=== PATIENT | female | born 1980 | race Caucasian/White ===

== ENCOUNTER 2017-07-09 11:59 | Observation (INO) | payer OTHER ==
[2017-07-09] MEDS ORDERED: ALBUTEROL SO4 2.5/IPRATROPIUM 0.5 INH SOL 3 ML VIAL.NEB. NEB ONE ×3 (13:05→18:20)
[2017-07-09] MEDS ORDERED: methylPREDNISolone NA SUCC 125 MG/2 ML VIAL IVPB ONE (13:05)
--- NOTE | 2017-07-09 13:16 | PDOC ---
History of Present Illness - General Chief Complaint: Shortness of Breath Stated Complaint: SOB Time Seen by Provider: 07/09/17 12:21 History Source: Patient Exam Limitations: No Limitations - History of Present Illness Initial Comments: This is a 37 YOF with h/o asthma (never intubated or admitted, uses albuterol MDI prn) and current OCP use (x3 months) who presents with SOB since walking up steps this morning at 9 am. She states that the SOB started with exertion but has persisted since that time, and she additionally has 7/10 nonradiating substernal chest pain which began around the same time as the SOB. The SOB feels the same as her asthma exacerbations but the chest pain is new. She additionally has had recent cough, but she denies any fever, chills, nausea, vomiting, diarrhea, constipation, leg pain or swelling. She has not taken any recent long car rides or plane rides, has not been ill or immobilized recently, has not had recent injuries or surgeries, and has no known h/o DVT/PE. Past History - Past Medical History Allergies/Adverse Reactions: Allergies Allergy/AdvReac Type Severity Reaction Status Date / Time No Known Drug Allergies Allergy Verified 07/09/17 12:03 Home Medications: Ambulatory Orders Norethindrone-E.estradiol-Iron [Tilia Fe 28 Tablet] 1 each PO DAILY 07/09/17 Asthma: Yes COPD: No - Surgical History Cholecystectomy: Yes - Suicide/Smoking/Psychosocial Hx Smoking Status: No Smoking History: Never smoked Have you smoked in the past 12 months: No Number of Cigarettes Smoked Daily: 0 Information on smoking cessation initiated: No Hx Alcohol Use: No Drug/Substance Use Hx: No Substance Use Type: None Hx Substance Use Treatment: No Review of Systems - Review of Systems Constitutional: No: Chills, Fever, Unexplained wgt Loss HEENTM: No: Nose Congestion, Throat Pain Respiratory: No: Cough, Shortness of Breath Cardiac (ROS): No: Chest Pain, Palpitations ABD/GI: No: Constipated, Diarrhea, Nausea, Vomiting : No: Burning, Dysuria Musculoskeletal: No: Back Pain, Neck Pain Integumentary: No: Bruising, Rash Neurological: No: Headache, Numbness, Tingling, Weakness, Dizziness Endocrine: No: Unexplained Weight Gain, Unexplained Weight Loss *Physical Exam - Vital Signs Last Vital Signs Temp Pulse Resp BP Pulse Ox 98 F 72 20 132/96 100 07/09/17 12:04 07/09/17 12:04 07/09/17 12:04 07/09/17 12:04 07/09/17 12:04 ED Treatment Course - LABORATORY CBC & Chemistry Diagram: 07/09/17 13:31 07/09/17 13:31 - RADIOLOGY Radiology Studies Ordered: Category Date Time Status CHEST CT WITH CONTRAST [CT] Stat CT Scan 07/09/17 13:06 Ordered CHEST PA & LAT [RAD] Stat Radiology 07/09/17 13:06 Ordered *DC/Admit/Observation/Transfer Diagnosis at time of Disposition: Shortness of breath, EKG abnormalities, Pulmonary hypertension Chest pain Qualifiers: Chest pain type: unspecified Qualified Code(s): R07.9 - Chest pain, unspecified - Discharge Dispostion Condition at time of disposition: Guarded Admit: Yes - Referrals - Patient Instructions - Post Discharge Activity
--- NOTE | 2017-07-09 13:34 | PDOC ---
Attending Attestation - Resident Resident Name: Jennifer Mayers - ED Attending Attestation I have performed the following: I have examined & evaluated the patient, The case was reviewed & discussed with the resident, I agree w/resident's findings & plan, Exceptions are as noted - HPI HPI: 07/09/17 13:43 The patient is a 37 year old female, with a significant PMH of asthma, who presents to the emergency department with shortness of breath while walking up a flight of stairs at 9AM this morning and associated substernal chest discomfort. The patient describes the substernal chest discomfort as a 7/10, non -radiating. The patient states the SOB feels similar to previous asthma exacerbations but does not report chest pain in the past. The patient notes she went to see her PCP today, had an EKG done there, and was told to come to the ER for further evaluation. The patient denies any recent long car rides, leg pain or swelling, chest pain, shortness of breath, headache and dizziness. Denies fever, chills, nausea, vomit, diarrhea and constipation. Denies dysuria, frequency, urgency and hematuria. Allergies: NKA Past surgical history: Cholecystectomy. Ovarian cyst removal. Social history: No reported alcohol, cigarette or drug use. - Physicial Exam PE: 07/09/17 13:43 GENERAL: Awake, alert, and fully oriented, in no acute distress HEAD: No signs of trauma EYES: PERRLA, EOMI, sclera anicteric, conjunctiva clear ENT: Auricles normal inspection, hearing grossly normal, nares patent, oropharynx clear without exudates. Moist mucosa NECK: Normal ROM, supple, no lymphadenopathy, JVD, or masses LUNGS: Breath sounds equal, clear to auscultation bilaterally. No wheezes, and no crackles HEART: Regular rate and rhythm, normal S1 and S2, no murmurs, rubs or gallops ABDOMEN: Soft, nontender, normoactive bowel sounds. No guarding, no rebound. No masses EXTREMITIES: Normal range of motion, no edema. No clubbing or cyanosis. No cords, erythema, or tenderness NEUROLOGICAL: Normal speech, cranial nerves intact, negative pronator drift, 5/ 5 strength in all 4 extremities, normal sensation to light touch in all 4 extremities, normal cerebellar exam, normal gait, normal reflexes and tone SKIN: Warm, Dry, normal turgor, no rashes or lesions noted. - Medical Decision Making 07/09/17 13:43 37-year-old female with a history of asthma on oral contraceptive pills presents with chest pressure, shortness of breath on exertion and abnormal EKG. Vitals are unremarkable. Exam is completely normal with no wheezing. Differential includes but is not limited to pulmonary embolism versus ACS versus muscular pain or asthma. 07/09/17 19:07 Labs unremarkable including negative troponin. CTA negative for PE but concerning for possible pulmonary hypertension. Given persistent chest pain and abnormal EKG as well as possible pulmonary hypertension, the patient has been admitted for further management. Signout has been given to resident Dr. Balbuena who accepts the patient for admission under Dr. Donohue. Case discussed in detail with admitting physician including history, physical exam and ancillary studies. Admitting physician has assumed care for the patient, will follow all pending diagnostics and will complete the evaluation and treatment.
[2017-07-09 13:40] LABS: BASO % 0.2 % (0-2.0); EOS % 0.5 % (0-4.5); HEMATOCRIT 40.1 % (32.4-45.2); HEMOGLOBIN 12.9 GM/dL (10.7-15.3); MCH 28.9 pg (25.7-33.7); MCHC 32.2 g/dl (32.0-36.0); MEAN CELL VOLUME 89.7 fl (80-96); MEAN PLT VOLUME 10.2 fl (7.5-11.1); MONO % 5.8 % (3.8-10.2); NEUT % 66.5 % (42.8-82.8); PLATELET COUNT 200 K/MM3 (134-434); RBC 4.47 M/mm3 (3.60-5.2); RDW 14.1 % (11.6-15.6); WHITE BLOOD COUNT 9.6 K/mm3 (4.0-10.0)
[2017-07-09 13:42] LABS: VENOUS PC02 46.1 mmHg (38-52); VENOUS PH 7.34 (7.32-7.42); VENOUS PO2 23.2 mmHg (28-48)
[2017-07-09 13:58] LABS: INR 0.99 (0.82-1.09); PROTHROMBIN TIME (PATIENT) 11.2 SEC (9.98-11.88)
[2017-07-09] MEDS ORDERED: methylPREDNISolone NA SUCC 125 MG/2 ML VIAL ONE (14:02)
[2017-07-09 14:49] LABS: ALBUMIN 3.5 g/dl (3.4-5.0); ANION GAP 10 (8-16); BLOOD UREA NITROGEN 12 mg/dL (7-18); CALCIUM 8.3 mg/dL (8.5-10.1); CHLORIDE 105 mmol/L (98-107); CO2 24 mmol/L (21-32); CREATININE 0.7 mg/dL (0.55-1.02); GLUCOSE,RANDOM 75 mg/dL (74-106); POTASSIUM 3.9 mmol/L (3.5-5.1); SGOT/AST 13 U/L (15-37); SGPT/ALT 21 U/L (12-78); SODIUM 139 mmol/L (136-145)
[2017-07-09 14:53] LABS: ALK PHOS 78 U/L (45-117); BILIRUBIN,TOTAL 0.5 mg/dL (0.2-1.0); TOT PROT 7.2 g/dl (6.4-8.2)
[2017-07-09] MEDS ORDERED: IBUPROFEN 400 MG TABLET (FP) PO ONE ×2 (18:06→19:04)
[2017-07-09] MEDS ORDERED: ACETAMINOPHEN 500 MG TABLET (FP) PO ONE (18:20)
--- NOTE | 2017-07-09 19:52 | HP ---
CHIEF COMPLAINT: SOB on exertion , new onset HISTORY OF PRESENT ILLNESS: The patient is a 37 year old female, with a significant PMH of asthma, who presents to the emergency department with shortness of breath while walking up a flight of stairs and associated substernal chest discomfort. The patient describes the substernal chest discomfort as a 7/10, non-radiating. The patient states the SOB feels similar to previous asthma exacerbations but does not report chest pain in the past. The patient notes she went to see her PCP today, had an EKG done there, and was told to come to the ER for further evaluation. The patient denies any recent long car rides, leg pain or swelling, chest pain, shortness of breath, headache and dizziness. Denies fever, chills, nausea, vomit, diarrhea and constipation. Denies dysuria, frequency, urgency and hematuria. pt has a family history of sudden , her mother at age 35 of heart attack per daughter. ER course was notable for: (1)CBC, CMP (2)EKG (3)BNP (4)CT chest Recent Travel:denies PAST MEDICAL HISTORY: Asthma PAST SURGICAL HISTORY: Cholecystectomy. Ovarian cyst removal. Social History: Smoking:denies Alcohol:denies Drugs: denies Family History: Allergies No Known Drug Allergies Allergy (Verified 07/09/17 12:03) HOME MEDICATIONS: Home Medications Medication Instructions Recorded Norethindrone-E.estradiol-Iron 1 each PO DAILY 07/09/17 [Tilia Fe 28 Tablet] REVIEW OF SYSTEMS CONSTITUTIONAL: + weight change gain 5 pounds HEENT: Absent: rhinorrhea, nasal congestion, throat pain, throat swelling, difficulty swallowing, mouth swelling, ear pain, eye pain, visual changes CARDIOVASCULAR: Absent: chest pain, syncope, palpitations, irregular heart rate, lightheadedness , peripheral edema RESPIRATORY: shortness of breath, dyspnea with exertion, denies orthopnea, wheezing, stridor, hemoptysis GASTROINTESTINAL: Absent: abdominal pain, abdominal distension, nausea, vomiting, diarrhea, constipation, melena, hematochezia GENITOURINARY: Absent: dysuria, frequency, urgency, hesitancy, hematuria, flank pain, genital pain MUSCULOSKELETAL: Absent: myalgia, arthralgia, joint swelling, back pain, neck pain SKIN: Absent: rash, itching, pallor HEMATOLOGIC/IMMUNOLOGIC: Absent: easy bleeding, easy bruising, lymphadenopathy, frequent infections ENDOCRINE: Absent: unexplained weight gain, unexplained weight loss, heat intolerance, cold intolerance NEUROLOGIC: Absent: headache, focal weakness or paresthesias, dizziness, unsteady gait, seizure, mental status changes, bladder or bowel incontinence PSYCHIATRIC: + anxiety, denies depression, suicidal or homicidal ideation, hallucinations. PHYSICAL EXAMINATION Vital Signs - 24 hr 07/09/17 12:04 Temperature 98 F Pulse Rate 72 Respiratory 20 Rate Blood Pressure 132/96 O2 Sat by Pulse 100 Oximetry (%) GENERAL: Awake, alert, and fully oriented, in no acute distress. HEAD: NC/AT EYES: AMALIA , EOMI, sclera anicteric, conjunctiva clear. E Moist mucous membranes. NECK: supple without lymphadenopathy, JVD, LUNGS:CTA B/L . No wheezes, and no crackles. No accessory muscle use. HEART: NSR, normal S1 and S2 without murmur, rub or gallop. ABDOMEN: soft, ND, NT, normoactive bowel sounds, no guarding, no rebound. MUSCULOSKELETAL:FROM all joints. No bony deformities or tenderness. No CVA tenderness. UPPER EXTREMITIES: 2+ pulses, warm, well-perfused. No cyanosis. No clubbing. No peripheral edema. LOWER EXTREMITIES: 2+ pulses, warm, well-perfused. No calf tenderness. No peripheral edema. NEUROLOGICAL: Cranial nerves II-XII intact. Normal speech. gait not observed. PSYCHIATRIC: Cooperative. Good eye contact. Appropriate mood and affect. SKIN: Warm, dry, Laboratory Results - last 24 hr 07/09/17 07/09/17 07/09/17 13:31 13:31 13:31 WBC 9.6 RBC 4.47 Hgb 12.9 Hct 40.1 MCV 89.7 MCH 28.9 MCHC 32.2 RDW 14.1 Plt Count 200 MPV 10.2 D Neutrophils % 66.5 Lymphocytes % 27.0 Monocytes % 5.8 Eosinophils % 0.5 Basophils % 0.2 PT with INR 11.20 INR 0.99 VBG pH POC VBG pCO2 POC VBG pO2 Mixed VBG HCO3 Sodium 139 Potassium 3.9 Chloride 105 Carbon Dioxide 24 Anion Gap 10 BUN 12 Creatinine 0.7 Creat Clearance w eGFR > 60 Random Glucose 75 Calcium 8.3 L Magnesium 2.0 Total Bilirubin 0.5 D AST 13 L ALT 21 Alkaline Phosphatase 78 Creatine Kinase 111 Troponin I < 0.02 B-Natriuretic Peptide Total Protein 7.2 Albumin 3.5 Serum , Qual 07/09/17 0218 18 13:31 13:31 13:31 WBC RBC Hgb Hct MCV MCH MCHC RDW Plt Count MPV Neutrophils % Lymphocytes % Monocytes % Eosinophils % Basophils % PT with INR INR VBG pH 7.34 POC VBG pCO2 46.1 POC VBG pO2 23.2 L Mixed VBG HCO3 24.3 Sodium Potassium Chloride Carbon Dioxide Anion Gap BUN Creatinine Creat Clearance w eGFR Random Glucose Calcium Magnesium Total Bilirubin AST ALT Alkaline Phosphatase Creatine Kinase Troponin I B-Natriuretic Peptide 378.13 H Total Protein Albumin Serum , Qual Negative 07/09/17 18:00 WBC RBC Hgb Hct MCV MCH MCHC RDW Plt Count MPV Neutrophils % Lymphocytes % Monocytes % Eosinophils % Basophils % PT with INR INR VBG pH POC VBG pCO2 POC VBG pO2 Mixed VBG HCO3 Sodium Potassium Chloride Carbon Dioxide Anion Gap BUN Creatinine Creat Clearance w eGFR Random Glucose Calcium Magnesium Total Bilirubin AST ALT Alkaline Phosphatase Creatine Kinase 108 Troponin I < 0.02 B-Natriuretic Peptide Total Protein Albumin Serum , Qual CBC, BMP 07/09/17 13:31 07/09/17 13:31 CTA negative for PE CXR clear lungs ASSESSMENT/PLAN: The patient is a 37 year old female, with a significant PMH of asthma, who presents to the emergency department with shortness of breath while walking up a flight of stairs and associated substernal chest discomfort. was found to have abnormal T waves on EKG was admitted for further evaluation. # Atypical chest pain R/O PE vs Asthma vs Pulmonary HTN vs musculoskeletal * CTA negative for PE * CXR clear lung * Trop negative * EKG NSR with ST, T wave abnormalities * BNP 378 * ECHO * cardiology consult * stress test as out patient. # Asthma * duoneb * o2 to keep O2 > 90 * # Pulmonary HTN , * noted on CT chest * Follow up as out patient * # FEN * F: no fluids * E: WNL * N: regular diet # Proph * DVT: scds both legs , hep 5000 SQ TID * GI: no needed * # Dispo: * Admit to tele Visit type - Emergency Visit Emergency Visit: Yes ED Registration Date: 07/10/17 Care time: The patient presented to the Emergency Department on the above date and was hospitalized for further evaluation of their emergent condition. - New Patient This patient is new to me today: Yes Date on this admission: 07/11/17 - Critical Care Critical Care patient: No
[2017-07-09] MEDS ORDERED: ACETAMINOPHEN 325 MG TABLET (FP) PO PRN (22:31)
[2017-07-09 23:45] VITALS: BMI 29.7
--- NOTE | 2017-07-09 23:59 | PN ---
Teaching Attending Note Name of Resident: Michoacano Michel ATTENDING PHYSICIAN STATEMENT I saw and evaluated the patient. I reviewed the resident's note and discussed the case with the resident. I agree with the resident's findings and plan as documented. SUBJECTIVE: patient has been having symptoms of SOB and RICHARD for a while that are worse with exertion, but today they became worse OBJECTIVE: ASSESSMENT AND PLAN: patient presented with worsening SOB, PE was ruled out. patient has a significant PMH of mother at the age of 35 from a cardiovascular event, but neither the patient nor her sister know the exact cause of . 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
[2017-07-10 07:59] LABS: ALBUMIN 3.2 g/dl (3.4-5.0); ANION GAP 7 (8-16); BLOOD UREA NITROGEN 13 mg/dL (7-18); CALCIUM 8.3 mg/dL (8.5-10.1); CHLORIDE 108 mmol/L (98-107); CHOLESTEROL 181 mg/dL (50-200); CO2 22 mmol/L (21-32); CREATININE 0.8 mg/dL (0.55-1.02); GLUCOSE,RANDOM 134 mg/dL (74-106); INR 1.02 (0.82-1.09); PHOSPHOROUS 2.7 mg/dL (2.5-4.9); POTASSIUM 4.1 mmol/L (3.5-5.1); PROTHROMBIN TIME (PATIENT) 11.5 SEC (9.98-11.88); SGOT/AST 10 U/L (15-37); SGPT/ALT 19 U/L (12-78); SODIUM 137 mmol/L (136-145)
[2017-07-10 08:05] LABS: ALK PHOS 73 U/L (45-117); BILIRUBIN,TOTAL 0.7 mg/dL (0.2-1.0); HDL CHOLESTEROL 66 mg/dL (40-60); LDL CHOLESTEROL (ONLY SJRH) 99 mg/dL (5-100); N-TERMINAL BNP 797.75 pg/ml (5-125); TOT PROT 6.7 g/dl (6.4-8.2); TRIGLYCERIDES 69 mg/dL (35-160)
[2017-07-10 08:07] LABS: HEMATOCRIT 38.8 % (32.4-45.2); HEMOGLOBIN 12.5 GM/dL (10.7-15.3); LYMPH % 13.5 % (8-40); MCH 28.8 pg (25.7-33.7); MCHC 32.1 g/dl (32.0-36.0); MEAN CELL VOLUME 89.7 fl (80-96); MEAN PLT VOLUME 10.9 fl (7.5-11.1); MONO % 2.5 % (3.8-10.2); PLATELET COUNT 194 K/MM3 (134-434); RBC 4.33 M/mm3 (3.60-5.2); RDW 13.8 % (11.6-15.6)
[2017-07-10] MEDS ORDERED: ESTROSTEP FE PO SCH (10:00)
[2017-07-10 10:06] VITALS: BP 124/86; PULSE 84; TEMP 98.3
--- NOTE | 2017-07-10 13:03 | EKG ---
Test Reason : Blood Pressure : / mmHG Vent. Rate : 080 BPM Atrial Rate : 080 BPM P-R Int : 132 ms QRS Dur : 084 ms QT Int : 436 ms P-R-T Axes : 031 007 -54 degrees QTc Int : 502 ms NORMAL SINUS RHYTHM PROLONGED QT ABNORMAL ECG WHEN COMPARED WITH ECG OF 09-JUL-2017 12:09, QT HAS LENGTHENED CLINICAL CORRELATION IS RECOMMENDED Confirmed by ASHLEY BRAY, RALPH ([id number]) on 07/10/2017 1:02:52 PM Referred By: Confirmed By:RALPH RAMIREZ MD
--- NOTE | 2017-07-10 13:28 | EKG ---
Test Reason : Blood Pressure : / mmHG Vent. Rate : 070 BPM Atrial Rate : 070 BPM P-R Int : 128 ms QRS Dur : 082 ms QT Int : 400 ms P-R-T Axes : 016 001 -25 degrees QTc Int : 432 ms NORMAL SINUS RHYTHM ABNORMAL ECG WHEN COMPARED WITH ECG OF 17-MAR-2011 09:46, T WAVE INVERSION MORE EVIDENT IN ANTERIOR LEADS CLINICAL CORRELATION IS RECOMMENDED Confirmed by ASHLEY BRAY, RALPH ([id number]) on 07/10/2017 1:27:44 PM Referred By: Confirmed By:RALPH RAMIREZ MD
--- NOTE | 2017-07-10 13:38 | CON.CARD ---
Consult Consult Specialty:: Cardiology Referred by:: piero Reason for Consultation:: sob - History of Present Illness Chief Complaint: sob History of Present Illness: She is a 37 year old female, with a significant PMH of asthma, who presents to the emergency department with shortness of breath on exertion that is new onset , without chest pain, severe and at room to room distance. No palpitations, dizziness or syncope. Noted with T wave changes on ecg. troponin neg. CT no pe. - History Source History Provided By: Patient, Medical Record - Past Medical History ...LMP: 07/05/17 ...LMP Comment: has mense ...: No (on contaceptive pills) - Alcohol/Substance Use Hx Alcohol Use: No - Smoking History Smoking history: Never smoked Have you smoked in the past 12 months: No Aproximately how many cigarettes per day: 0 Home Medications - Allergies Allergies/Adverse Reactions: Allergies Allergy/AdvReac Type Severity Reaction Status Date / Time No Known Drug Allergies Allergy Verified 07/09/17 12:03 - Home Medications Home Medications: Ambulatory Orders Norethindrone-E.estradiol-Iron [Tilia Fe 28 Tablet] 1 each PO DAILY 07/09/17 Vital Signs: Vital Signs Temperature 98.3 F 07/10/17 10:00 Pulse Rate 84 07/10/17 10:00 Respiratory Rate 20 07/10/17 10:00 Blood Pressure 124/86 07/10/17 10:00 O2 Sat by Pulse Oximetry (%) 96 07/10/17 10:00 - Other Data Labs, Other Data: CBC, BMP 07/10/17 05:43 07/10/17 05:43 INR, PTT INR 1.02 (0.82-1.09) 07/10/17 05:43 Troponin, BNP 07/09/17 07/09/17 07/09/17 13:31 13:31 18:00 Troponin I < 0.02 < 0.02 B-Natriuretic Peptide 378.13 H 07/10/17 05:43 Troponin I < 0.02 B-Natriuretic Peptide 797.75 H Troponin, BNP 07/09/17 07/09/17 07/09/17 13:31 13:31 18:00 Troponin I < 0.02 < 0.02 B-Natriuretic Peptide 378.13 H 07/10/17 05:43 Troponin I < 0.02 B-Natriuretic Peptide 797.75 H Imaging - Results Chest X-ray: Report Reviewed (joo) Cat Scan: Report Reviewed (no pe) EKG: Report Reviewed (nsr nssttw changes) Problem List - Problems (1) EKG abnormalities Assessment/Plan: Few risk factors for CAD. Echo ordered. Code(s): R94.31 - ABNORMAL ELECTROCARDIOGRAM [ECG] [EKG] (2) Chest pain Assessment/Plan: Now without symptoms. Will arrange for stress testing. PE chen negative. Code(s): R07.9 - CHEST PAIN, UNSPECIFIED Qualifiers: Chest pain type: unspecified Qualified Code(s): R07.9 - Chest pain, unspecified (3) Pulmonary hypertension Assessment/Plan: Most likely due to pulmonary disease. No pe. Echo ordered. Code(s): I27.20 - PULMONARY HYPERTENSION, UNSPECIFIED
--- NOTE | 2017-07-10 17:02 | DS ---
Physical Exam: SUBJECTIVE: Patient seen and examined Patient is feeling better and does not want to stay in the hospital. no fever or shortness of breath. OBJECTIVE: Vital Signs Temperature 98.3 F 07/10/17 10:00 Pulse Rate 84 07/10/17 10:00 Respiratory Rate 20 07/10/17 10:00 Blood Pressure 124/86 07/10/17 10:00 O2 Sat by Pulse Oximetry (%) 96 07/10/17 10:00 LABS Laboratory Results - last 24 hr 07/09/17 07/10/17 07/10/17 18:00 05:43 05:43 WBC 11.0 H RBC 4.33 Hgb 12.5 Hct 38.8 MCV 89.7 MCH 28.8 MCHC 32.1 RDW 13.8 Plt Count 194 MPV 10.9 Neutrophils % 84.0 H D Lymphocytes % 13.5 D Monocytes % 2.5 L Eosinophils % 0.0 D Basophils % 0.0 PT with INR 11.50 INR 1.02 PTT (Actin FS) 22.0 L Sodium Potassium Chloride Carbon Dioxide Anion Gap BUN Creatinine Creat Clearance w eGFR Random Glucose Hemoglobin A1c % Calcium Phosphorus Magnesium Total Bilirubin AST ALT Alkaline Phosphatase Creatine Kinase 108 Troponin I < 0.02 B-Natriuretic Peptide Total Protein Albumin Triglycerides Cholesterol Total LDL Cholesterol HDL Cholesterol TSH 07/10/17 07/10/17 05:43 05:43 WBC RBC Hgb Hct MCV MCH MCHC RDW Plt Count MPV Neutrophils % Lymphocytes % Monocytes % Eosinophils % Basophils % PT with INR INR PTT (Actin FS) Sodium 137 Potassium 4.1 Chloride 108 H Carbon Dioxide 22 Anion Gap 7 L BUN 13 Creatinine 0.8 Creat Clearance w eGFR > 60 Random Glucose 134 H Hemoglobin A1c % 5.1 Calcium 8.3 L Phosphorus 2.7 Magnesium 2.0 Total Bilirubin 0.7 D AST 10 L ALT 19 Alkaline Phosphatase 73 Creatine Kinase 88 Troponin I < 0.02 B-Natriuretic Peptide 797.75 H Total Protein 6.7 Albumin 3.2 L Triglycerides 69 Cholesterol 181 Total LDL Cholesterol 99 HDL Cholesterol 66 H TSH 0.28 L HOSPITAL COURSE: Date of Admission:07/10/17 Date of Discharge: 07/10/17 Patient was admitted for chest pain, patient's chest pain improved and afterward did not wANT TO Stay in the hospital ,Therefore signed against medical advice. Patient was explained the risks of not staying in the hospital, heard attack, coma, heart muscle and . Patient understands and wants to go AMA. Minutes to complete discharge: 35 Discharge Summary Reason For Visit: SHORTNESS OF BREATH; CHEST PAIN Condition: Guarded - Instructions Disposition: HOME - Home Medications Comprehensive Discharge Medication List: Ambulatory Orders Norethindrone-E.estradiol-Iron [Tilia Fe 28 Tablet] 1 each PO DAILY 07/09/17 This patient is new to me today: Yes Date on this admission: 07/10/17 Emergency Visit: Yes ED Registration Date: 07/10/17 Care time: The patient presented to the Emergency Department on the above date and was hospitalized for further evaluation of their emergent condition. Critical Care patient: No - Discharge Referral Referred to [facility] Med P.C.: No
--- NOTE | 2017-07-11 12:50 | DS ---
Physical Exam: SUBJECTIVE: Patient seen and examined by attending lion tamer at bed side dr Cole . OBJECTIVE: felling well , asking to leave home PHYSICAL EXAM GENERAL: The patient is awake, alert, and fully oriented, in no acute distress. HEAD: Normal with no signs of trauma. EYES: PERRL, extraocular movements intact, sclera anicteric, conjunctiva clear. ENT: Ears normal, nares patent, oropharynx clear without exudates, moist mucous membranes. NECK: Trachea midline, full range of motion, supple. LUNGS: Breath sounds equal, clear to auscultation bilaterally, no wheezes, no crackles, no accessory muscle use. HEART: Regular rate and rhythm, S1, S2 without murmur, rub or gallop. ABDOMEN: Soft, nontender, nondistended, normoactive bowel sounds, no guarding, no rebound, no hepatosplenomegaly, no masses. EXTREMITIES: 2+ pulses, warm, well-perfused, no edema. NEUROLOGICAL: Cranial nerves II through XII grossly intact. Normal speech, gait not observed. PSYCH: Normal mood, normal affect. SKIN: Warm, dry, normal turgor, no rashes or lesions noted. LABS CBC, BMP 07/10/17 05:43 07/10/17 05:43 HOSPITAL COURSE: Date of Admission:07/10/17 Date of Discharge: 07/11/17 Discharge Summary Reason For Visit: SHORTNESS OF BREATH; CHEST PAIN Condition: Guarded - Instructions Disposition: HOME - Home Medications Comprehensive Discharge Medication List: Ambulatory Orders Norethindrone-E.estradiol-Iron [Tilia Fe 28 Tablet] 1 each PO DAILY 07/09/17 - Discharge Referral [facility]erred [facility] Med P.C.: No
== END 2017-07-10 15:43 | disposition home or self-care (01) ==
LOC: JER 11:59 → INTOOBSV 19:06 → UNDOADMOB 19:06 → OBSVTOIN 19:06 → JERBED 19:06 → INTOOBSV 22:31 → UNDOADMOB 22:31 → OBSVTOIN 22:31 → JERBED 22:31 → J4W 22:42 → JERBED 22:42 → J4W 07-10 15:21 → UNDODISOB 07-10 15:43
PROVIDERS: ADMIT Internal Medicine; ATTEND Internal Medicine
PROC: 3E0333Z Introduction of Anti-inflammatory into Peripheral Vein, Percutaneous Approach (ICD-10-PCS; principal; 2017-07-10)
PROC: 3E0F7GC Introduction of Other Therapeutic Substance into Respiratory Tract, Via Natural or Artificial Opening (ICD-10-PCS; 2017-07-10)
DX: R07.89 Other chest pain (principal); R06.02 Shortness of breath; R94.31 Abnormal electrocardiogram [ECG] [EKG]; I27.20 Pulmonary hypertension, unspecified; J45.909 Unspecified asthma, uncomplicated
CPT/HCPCS: 36415; 71046-TC-FY; 71260-TC; 80053; 80061; 82550; 82803; 83036; 83721; 83735; 83880; 84100; 84443; 84484; 84703; 85025; 85610; 85730; 93005; 93010; 99285-25; G0378